=== PATIENT | female | born 1945 | race Caucasian/White ===

== ENCOUNTER → 2018-08-27 | Day surgery (SDC) | payer MEDICARE ==
[2018-08-24 11:35] LABS: BASOPHILS # (AUTO) 0.1 (0.0-0.1); EOSINOPHILS # (AUTO) 0.4 (0.0-0.4); EOSINOPHILS % 3.6 % (0.0-6.0); HEMATOCRIT 45.1 % (34.2-44.1); HEMOGLOBIN 14.4 g/dL (12.0-16.0); LYMPHOCYTES # (AUTO) 1.5 (1.0-3.2); LYMPHOCYTES % 13.2 % (18.0-39.1); MEAN CORPUSCULAR HEMOGLOBIN 30.1 pg (28-32); MEAN CORPUSCULAR HGB CONC 31.9 g/dL (31-35); MEAN CORPUSCULAR VOLUME 94.2 fL (81-99); MONOCYTES # (AUTO) 0.9 (0.2-0.8); MONOCYTES % 8.2 % (4.4-11.3); NEUTROPHILS # (AUTO) 8.4 (2.1-6.9); NEUTROPHILS % 73.8 % (38.7-80.0); PLATELET COUNT 243 x10e3/uL (140-360); RED BLOOD COUNT 4.79 x10e6/uL (3.6-5.1); RED CELL DISTRIBUTION WIDTH 12.8 % (11.7-14.4)
[2018-08-24 11:43] LABS: INR 0.89; PROTHROMBIN TIME 12.9 seconds (11.9-14.5)
[2018-08-24 11:44] LABS: PARTIAL THROMBOPLASTIN TIME 27.5 seconds (23.8-35.5)
[2018-08-24 11:54] LABS: ALBUMIN 4.1 g/dL (3.5-5.0); ALBUMIN/GLOBULIN RATIO 1.2 (0.8-2.0); CALCIUM 10.7 mg/dL (8.4-10.2); CREATININE, SERUM 1.12 mg/dL (0.57-1.11)
--- NOTE | 2018-08-24 11:59 | Diagnostic Imaging Report ---
EXAMINATION: PA and lateral views of the chest. COMPARISON: None CLINICAL HISTORY: Preoperative evaluation for cardiac catheterization DISCUSSION: Lines/tubes: None. Lungs: The lungs are well inflated and clear. There is no evidence of pneumonia or pulmonary edema. Pleura: There is no pleural effusion or pneumothorax. Heart and mediastinum: Prominent heart size. Aortic calcification. Bones and soft tissues: No acute bony abnormalities. IMPRESSION: Mild cardiomegaly without decompensation. Signed by: Dr. Michele Palma M.D. on 08/24/2018 11:56 AM
--- NOTE | 2018-08-24 16:11 | Pre Op History & Physical ---
The patient will be presenting for cardiac catheterization and possible intervention. HISTORY: A 73-year-old lady who has known multiple advanced health problems, including hypertension, atrial fibrillation, very severe vascular disease, very abnormal nuclear stress test, heavy smoker, COPD, lymphoma, status post chemotherapy. Patient in need for lung resection for slowly growing tumor. She was seen by her doctor, Dr. Gallardo at [facility] and anesthesia there. The patient was referred back to us to do a cardiac catheterization before her procedure. The patient is on Eliquis, which she stopped a few days back in preparation for this procedure. Her symptoms are easy fatigability, shortness of breath, chest pressure, chest tightness on minimal activity, chronic cough, productive at times, severe claudication in the right lower extremity. CURRENT MEDICATIONS 1. Eliquis 5 mg twice a day which is on hold. 2. Valsartan 80 mg a day. 3. Metoprolol tartrate 100 mg twice a day. 4. Pravastatin 40 mg a day. 5. Lasix 40 mg a day. 6. Tizanidine 2 mg 3 times a day. 7. Proair. 8. Tylenol Arthritis. 9. Zyrtec allergy. 10. Vitamin D. 11. Symbicort. ALLERGIES: TETANUS TOXOID. PAST MEDICAL HISTORY 1. Atrial fibrillation since October 2014. 2. Very abnormal arterial Doppler since 2013 with severe right iliac disease and bilateral lower extremity disease. 3. Hypertension. 4. Hypercholesterolemia. 5. COPD. 6. Heavy smoker. 7. Prior myocardial infarction. 8. Degenerative joint disease of the back and lumbar area. 9. Lung and liver nodules. 10. Right leg DVT. 11. Venous insufficiency. 12. Occluded right internal carotid artery. 13. Tonsillectomy. 14. Breast surgery. 15. Appendectomy. SOCIAL HISTORY: She is a . She quit smoking in September 2014. However, it was a very short period and she is back smoking. She is not an alcohol drinker. She is retired from [employer]. FAMILY HISTORY: Father at age 67 with CVA. Mother at the age of 74 with liver disease. Three siblings, one sister is diabetic and hypertensive. Two sons and no daughters. REVIEW OF SYSTEMS GENERAL: No fever. No chills. HEENT: Chronic headache. Chronic congestion. PULMONARY: Severe shortness of breath on minimal activity. CARDIAC: Exertional tightness and chest pressure with minimal activity. Smoker's cough. Debility. GI: No hematemesis. No melena. HEMATOLOGY: Easy bruising but no bleeding. EXTREMITIES: General back pain and knee pain. Severe claudication. Severe peripheral neuropathy. PHYSICAL EXAMINATION VITALS: Height of 5 feet 9 inches, weight 181 pounds, blood pressure 120/70, heart rate of 80, respiratory rate of 18. HEENT: Pupils are active. NECK: No elevation of jugular venous pulsation. No bruits. CHEST: Decreased air entry and poor air flow consistent with COPD. HEART: Irregularly irregular rate of atrial fibrillation. ABDOMEN: Soft. EXTREMITIES: Almost no pulses in the right lower extremity. Marked decrease pulse in the right femoral area. NEUROLOGIC: Weakness but no localized deficits. IMPRESSION AND PLAN 1. Angina equivalent symptoms. 2. History of prior myocardial infarction in a patient with very severe advanced vascular disease, including right iliac, bilateral lower extremity and occluded right internal carotid artery. The patient also does have very severe advanced pulmonary disease. The patient will be presenting for cardiac catheterization with possible intervention. Procedure, risks, benefits were discussed and explained. High risks are discussed in view of the patient's severe vascular disease and severe pulmonary disease and debility. She is aware. She understands that, and we are going to proceed with the procedure on Monday. Job#: [id number] RAYNE
[2018-08-27] VITALS (11 sets, daily range): BP systolic 154–189; BP diastolic 73–111
[~2018-08-27] VITALS: Ht 172.7 cm; Wt 79.4 kg
[~2018-08-27] MED LIST: ACETAMINOPHEN500 M1 PO; ASPIRIN EC81 MG PO; ATENOLOL100 MG PO; AZOR 5-20 MG T1 EACH PO; CALCIUM600 MG PO; CLONIDINE HCL0.1 MG PO; CLOPIDOGREL75 MG PO; DIOVAN HCT 3201 EAC1 PO; DIOVAN PO; ELIQUIS PO; FENTANYL CITRATE/PF 100MCG/2 ML INJ ONE; FUROSEMIDE40 MG PO; HEPARIN SOD/SOD CHLORIDE 2,000 ML ONE; HYDRALAZINE HCL 20 MG/ML VIAL ONE; HYDROCODONE/APAP 5MG-325MG TAB ONE; IOPAMIDOL 370 MG/ML 200 ML INFUS..BTL INJ ONE; LIDOCAINE HCL 2% LOCAL 20 ML VIAL ONE; METOPROLOL SUCC50 MG PO; MIDAZOLAM HCL 2 MG/2 ML VIAL ONE; MONTELUKAST SOD10 MG PO; PRAVASTATIN PO; SODIUM CHLORIDE 0.9% 1000ML 1,000 ML ONE; SYMBICORT 16010.2 GM INH; TIZANIDINE HCL2 MG PO; VITAMIN D PO; ZYRTEC10 M3 PO
--- OUTSIDE RECORDS SUMMARY | 2018-08-27 07:44 | XMS REPORT | Clinical Summary ---
Author Author [employer] Organization [employer] Address Unknown Phone Unavailable Care Team Providers Care Cna Caregiver Name Role Phone Keyon Paul MD PCP Allergies Active Allergy Reactions Severity Noted Date Comments Tetanus Immune Globulin Hives 06/19/2018 WITH HORSE SERUM Current Medications Prescription Sig. Disp. Refills Start End Date Status Date apixaban (ELIQUIS) 5 mg Take 5 mg by mouth 2 Active tablet (two) times a day. metoprolol succinate XL Take 100 mg by mouth Active (TOPROL-XL) 100 mg 24 hr daily. tablet pravastatin (PRAVACHOL) Take 40 mg by mouth Active 40 MG tablet daily. furosemide (LASIX) 40 mg Take 40 mg by mouth 2 Active tablet (two) times a day. montelukast (SINGULAIR) Take 10 mg by mouth Active 10 mg tablet nightly. budesonide-formoterol Inhale 2 puffs 2 (two) Active (SYMBICORT) 160-4.5 times a day. mcg/actuation inhaler cholecalciferol, vitamin Take 2,000 Units by mouth Active D3, (VITAMIN D3) 2,000 daily. unit capsule capsule acetaminophen (TYLENOL) Take 500 mg by mouth Active 500 MG tablet every 6 (six) hours as needed for mild pain. amlodipine-olmesartan Take 1 tablet by mouth Active (TONY) 5-20 mg per tablet daily. tiZANidine (ZANAFLEX) 2 Take 2 mg by mouth every Active MG tablet 8 (eight) hours as needed for muscle spasms. losartan (COZAAR) 100 MG Take 100 mg by mouth 08/07/20 Discontin tablet daily. 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 Office Visit Cardiothoracic Surgery Omega Gallardo MD Lung nodule (Primary Dx); Thyroid nodule 08/13/2018 Hospital Radiology Omega Gallardo MD Lung nodule Encounter 08/07/2018 Office Visit Cardiothoracic Surgery Omega Gallardo MD Lung nodule (Primary Dx) 08/07/2018 Orders Only Cardiothoracic Surgery ProviderWiliam MD 07/25/2018 Lab Lab Lalo Salazar Jr., MD 07/24/2018 Documentation Intensive Care Lalo Salazar Jr., MD 06/19/2018 Hospital Radiology Lalo Salazar Jr., MD Encounter 06/19/2018 Hospital Radiology Tang Wright MD Pneumothorax, post biopsy Encounter 06/19/2018 Hospital Radiology Lalo Salazar Jr., MD Lung mass (Primary Dx); Encounter Preoperative clearance; Mass of lower lobe of left lung; Pneumothorax, post biopsy 06/19/2018 Ancillary Radiology Lalo Salazar Jr., MD Lung mass Orders 06/15/2018 Lab Lab Lalo Salazar Jr., MD Lung mass (Primary Dx) 06/15/2018 Telephone Radiology Judy Orozco, DANNY 06/08/2018 Transcribe Radiology Lalo Salazar Jr., MD Lung mass (Primary Dx) Orders 05/30/2018 Prep for Intensive Care Lalo Salazar Jr., MD Mass of lower lobe of Surgery left lung (Primary Dx); Preoperative clearance 05/09/2018 Orders Only Intensive Care Lalo Salazar Jr., MD Mass of left lung (Primary Dx) 04/19/2018 Hospital Radiology Lalo Salazar Jr., MD Abnormal CT scan of lung Encounter 04/19/2018 Documentation Intensive Care Lalo Salazar Jr., MD 04/16/2018 Transcribe Access Paul Salazar MD Orders 04/16/2018 Transcribe Access Lalo Salazar Jr., MD Abnormal CT scan of lung Orders (Primary Dx) 01/25/2018 Hospital Radiology Lalo Salazar Jr., MD Lung nodule, solitary; Encounter 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 Lab Lab Dajuan Kendrick 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 Orders Only Pulmonology Lalo Salazar Jr., MD Lung nodule, solitary (Primary Dx); COPD mixed type after 08/26/2017 Social History Tobacco Use Types Packs/Day Years Used Date Former Smoker Cigarettes 0.25 Quit: 04/07/2018 Smokeless Tobacco: Never Used Comments: patient has quit smoking several times, last time prior was 2013 Alcohol Use Drinks/Week oz/Week Comments No Sex Assigned at Date Recorded Not on file Last Filed Vital Signs Vital Sign Reading Time Taken Blood Pressure 208/77 08/14/2018 2:45 PM CDT Pulse 69 08/14/2018 2:45 PM CDT Temperature 36.6 C (97.9 F) 08/14/2018 2:45 PM CDT Respiratory Rate 16 08/14/2018 2:45 PM CDT Oxygen Saturation 100% 08/14/2018 2:45 PM CDT Inhaled Oxygen - - Concentration Weight 80.7 kg (178 lb) 08/14/2018 2:45 PM CDT Height 170.2 cm (5' 7") 08/14/2018 2:45 PM CDT Body Mass Index 27.88 08/14/2018 2:45 PM CDT Plan of Treatment Health Maintenance Due Date Last Done Comments BREAST CANCER SCREENING 1993 COLON CANCER SCREENING 1993 SHINGRIX VACCINE (#1) 1993 PNEUMOCOCCAL 2008 POLYSACCHARIDE VACCINE AGE 65 AND OVER PNEUMOCOCCAL-13 2008 INFLUENZA VACCINE 05/23/2018 08/06/2017, 08/06/2016, 08/05/2015 ZOSTER VACCINE Completed 03/29/2014 Procedures Procedure Name Priority Date/Time Associated Diagnosis Comments THYROGLOBULIN ANTIBODY Routine 08/21/2018 Lymphosarcoma, mixed cell Results for this 4:42 PM CDT type (HCC) procedure are in the results section. PET CT SKULL BASE TO MID Routine 08/13/2018 Lung nodule Results for this THIGH 11:19 AM CDT procedure are in the results section. POC GLUCOSE Routine 08/13/2018 Results for this 9:58 AM CDT procedure are in the results section. XR CHEST 1 VW STAT 06/19/2018 Results for this 1:51 PM CDT procedure are in the results section. XR CHEST 1 VW Routine 06/19/2018 Pneumothorax, post biopsy Results for this 11:28 AM CDT procedure are in the results section. CYTOLOGY Routine 06/19/2018 Results for this (NON-GYNECOLOGICAL) 10:17 AM CDT procedure are in the REQUEST results section. CT NEEDLE BIOPSY NO Routine 06/19/2018 Lung mass Results for this CONTRAST 10:13 AM CDT procedure are in the results section. SURGICAL PATHOLOGY Routine 06/19/2018 Results for this REQUEST 10:13 AM CDT procedure are in the results section. SURGICAL PATHOLOGY Routine 06/19/2018 Results for this REQUEST 10:13 AM CDT procedure are in the results section. SURGICAL PATHOLOGY Routine 06/19/2018 Results for this REQUEST 10:13 AM CDT procedure are in the results section. ECG 12-LEAD STAT 06/19/2018 Results for this 8:49 AM CDT procedure are in the results section. HC COMPLETE BLD COUNT Routine 06/15/2018 Lung mass Results for this W/AUTO DIFF 11:38 AM CDT procedure are in the results section. PARTIAL THROMBOPLASTIN Routine 06/15/2018 Lung mass Results for this TIME (PTT) 11:38 AM CDT procedure are in the results section. PROTHROMBIN TIME WITH INR Routine 06/15/2018 Lung mass Results for this 11:38 AM CDT procedure are in the results section. CT CHEST WO CONTRAST Routine 04/19/[address] scan of lung Results for this 4:07 PM CDT procedure are in the results section. PULMONARY FUNCTION TEST Routine 02/14/2018 12:[address] CHEST WO CONTRAST Routine 01/25/2018 Lung nodule, solitary Results for this 11:51 AM CDT COPD mixed type procedure are in the results section. ZZESTIMATED GFR STAT 11/27/2017 Results for this 10:50 AM PET GROOMER procedure are in the results section. LDH STAT 11/27/2017 Reticulosarcoma Results for this 10:50 AM PET GROOMER procedure are in the results section. HC COMPLETE BLD COUNT STAT 11/27/2017 Reticulosarcoma Results for this W/AUTO DIFF 10:50 AM PET GROOMER procedure are in the results section. COMPREHENSIVE METABOLIC STAT 11/27/2017 Reticulosarcoma Results for this PANEL 10:50 AM PET GROOMER procedure are in the results section. after 08/26/2017 Results * Thyroglobulin antibody (08/21/2018 4:42 PM) Thyroglobulin Ab <0.9 0.0 - 4.0 IU/mL [facility] DEPARTMENT OF PATHOLOGY AND GENOMIC MEDICINE Specimen Serum Performing Organization Address City/State/Zipcode Phone Number [facility] DEPARTMENT OF [address] [place] [address] PATHOLOGY AND GENOMIC MEDICINE * PET/CT Skull Base To Mid Thigh (08/13/2018 11:19 AM) Narrative Performed At PROCEDURE:PET CT SKULL BASE TO MID THIGH RADIANT INDICATION:Evaluate lung nodule.Initial treatment strategy. TECHNIQUE:Blood glucose measured at the time of injection was 100 mg/dL. The patient was then injected with 12.2 mCi of 18F-FDG, IV.Approximately one hour later, PET images were acquired from the skull base to the mid thighs. Corresponding, low dose, non-contrast CT scanning was performed as part of the attenuation correction process.Automated dose exposure control was utilized. COMPARISON:CT chest dated 04/19/2018, showing a 1.6 cm left lung nodule. FINDINGS: Head and neck:No suspicious brain uptake.Normal uptake is seen in the visualized sinuses, orbits, nasopharynx, and oropharynx.Uptake by the larynx is normal.No suspicious neck lymph node uptake. Chest:Left-sided thyroid nodule demonstrates focal uptake, with an SUV of 3.9.No abnormal mediastinal, hilar, or axillary lymph node uptake.No suspicious pulmonary uptake.The perifissural left lower lobe pulmonary nodule seen on comparison CT is without abnormal uptake.Smaller pulmonary nodules noted on prior CT are too small to resolve. Abdomen:Normal uptake is seen in the stomach, spleen, pancreas, liver, and adrenal glands.No abnormal retroperitoneal or mesenteric lymph node uptake.Bowel uptake is physiologic. Pelvis:Physiologic bowel uptake.No suspicious pelvic sidewall or inguinal lymph node uptake. Review of the osseous structures demonstrates no suspicious uptake. IMPRESSION: 1.Absent uptake by the left lower lobe nodule seen on prior CT suggests either a benign nodule or very low-grade malignancy. 2.Incidental uptake within a left-sided thyroid nodule.This would be better evaluated with thyroid ultrasound, if clinically desired. [facility]-[id number] Procedure Note [facility], Radiology Results [facility] - 08/13/2018 11:44 AM CDT PROCEDURE: PET CT SKULL BASE TO MID THIGH INDICATION: Evaluate lung nodule. Initial treatment strategy. TECHNIQUE: Blood glucose measured at the time of injection was 100 mg/dL. The patient was then injected with 12.2 mCi of 18F-FDG, IV. Approximately one hour later, PET images were acquired from the skull base to the mid thighs. Corresponding, low dose, non-contrast CT scanning was performed as part of the attenuation correction process. Automated dose exposure control was utilized. COMPARISON: CT chest dated 04/19/2018, showing a 1.6 cm left lung nodule. FINDINGS: Head and neck: No suspicious brain uptake. Normal uptake is seen in the visualized sinuses, orbits, nasopharynx, and oropharynx. Uptake by the larynx is normal. No suspicious neck lymph node uptake. Chest: Left-sided thyroid nodule demonstrates focal uptake, with an SUV of 3.9. No abnormal mediastinal, hilar, or axillary lymph node uptake. No suspicious pulmonary uptake. The perifissural left lower lobe pulmonary nodule seen on comparison CT is without abnormal uptake. Smaller pulmonary nodules noted on prior CT are too small to resolve. Abdomen: Normal uptake is seen in the stomach, spleen, pancreas, liver, and adrenal glands. No abnormal retroperitoneal or mesenteric lymph node uptake. Bowel uptake is physiologic. Pelvis: Physiologic bowel uptake. No suspicious pelvic sidewall or inguinal lymph node uptake. Review of the osseous structures demonstrates no suspicious uptake. IMPRESSION: 1. Absent uptake by the left lower lobe nodule seen on prior CT suggests either a benign nodule or very low-grade malignancy. 2. Incidental uptake within a left-sided thyroid nodule. This would be better evaluated with thyroid ultrasound, if clinically desired. [facility]-[id number] Performing Organization Address City/[facility]/Zipcode Phone Number [facility] [address] [place] [phone] * POC glucose (08/13/2018 9:58 AM) POC glucose 100 (H) 65 - 99 mg/dL [facility] DEPARTMENT OF Comment: PATHOLOGY AND No Action Needed GENOMIC MEDICINE Meter ID: [id number] Certified Retinal Angiographer: Ezequiel Hou Performing Organization Address City/[facility]/Zipcode Phone Number [facility] DEPARTMENT OF [address] [place] [phone] PATHOLOGY AND GENOMIC MEDICINE * XR Chest 1 Vw (06/19/2018 1:51 PM) Only the most recent of 2 results within the time period is included. Narrative Performed At EXAMINATION:[facility]ST 1 [facility] CLINICAL HISTORY:S P Left Lung Biopsy COMPARISON:06/19/2018 IMPRESSION: An ill-defined opacity left perihilar region is known to represent an area of pulmonary hemorrhage surrounding a left lower lobe pulmonary nodule which underwent biopsy earlier the same day. No pneumothorax is present. Atelectasis is present in the left lung base. A small left pleural effusion is suspected. Heart size appears mildly prominent. [facility]-[id number] Procedure Note Interface, Radiology Results Incoming - 06/19/2018 1:56 PM CDT EXAMINATION: XR CHEST 1 VW CLINICAL HISTORY: S P Left Lung Biopsy COMPARISON: 06/19/2018 IMPRESSION: An ill-defined opacity left perihilar region is known to represent an area of pulmonary hemorrhage surrounding a left lower lobe pulmonary nodule which underwent biopsy earlier the same day. No pneumothorax is present. Atelectasis is present in the left lung base. A small left pleural effusion is suspected. Heart size appears mildly prominent. [facility]-[id number] Performing Organization Address City/[facility] Phone Number [facility] [address] [place] [address] * Cytology (non-gynecological) request (06/19/2018 10:17 AM) [facility] DEPARTMENT OF PATHOLOGY AND GENOMIC MEDICINE Cytology See link below for PDF Lab [facility] DEPARTMENT OF (non-gynecological) Report PATHOLOGY AND report GENOMIC MEDICINE Result status This is Final Report for [facility] DEPARTMENT OF [id number] PATHOLOGY AND GENOMIC MEDICINE Performing Organization Address [facility] Phone Number [facility] DEPARTMENT OF [address] [place] [address] PATHOLOGY AND GENOMIC MEDICINE * CT Needle Biopsy No Contrast (06/19/2018 10:13 AM) Narrative Performed At EXAMINATION:CT NEEDLE BIOPSY NO CONTRAST [facility] CLINICAL HISTORY:R91.8 Other nonspecific abnormal finding of lung field, LUNG MASS COMPARISON:To a previous CT scan of the chest from 04/19/2018 FINDINGS: Following discussion with the patient concerning risks and benefits of the procedure and following IV conscious sedation with Versed and fentanyl, biopsy of a left lower lobe nodule was performed using CT fluoroscopic guidance. [id number] patient to physician sedation time was 17 minutes. Multiple core samples were obtained and sent to pathology for further evaluation. An adequacy check was performed. Small amount of hemorrhage was noted following the procedure. The patient tolerated the procedure well. IMPRESSION: Biopsy of a left lower lobe nodule. [facility]-[id number] Procedure Note Interface, Radiology Results Incoming - 06/19/2018 2:05 PM CDT EXAMINATION: CT NEEDLE BIOPSY NO CONTRAST CLINICAL HISTORY: R91.8 Other nonspecific abnormal finding of lung field, LUNG MASS COMPARISON: To a previous CT scan of the chest from 04/19/2018 FINDINGS: Following discussion with the patient concerning risks and benefits of the procedure and following IV conscious sedation with Versed and fentanyl, biopsy of a left lower lobe nodule was performed using CT fluoroscopic guidance. [id number] patient to physician sedation time was 17 minutes. Multiple core samples were obtained and sent to pathology for further evaluation. An adequacy check was performed. Small amount of hemorrhage was noted following the procedure. The patient tolerated the procedure well. IMPRESSION: Biopsy of a left lower lobe nodule. [facility]-[id number] Performing Organization Address City/[facility] Phone Number [facility] [address] [place] [address] * Surgical pathology request (06/19/2018 10:13 AM) Only the most recent of 3 results within the time period is included. [facility] DEPARTMENT OF PATHOLOGY AND GENOMIC MEDICINE Surgical pathology report See link below for PDF Lab [facility] DEPARTMENT OF Report PATHOLOGY AND GENOMIC MEDICINE Result status This is Supplemental Report [facility] DEPARTMENT OF for [id number] PATHOLOGY AND GENOMIC MEDICINE Performing Organization Address [facility] Phone Number [facility] DEPARTMENT OF [address] [place] [id number] PATHOLOGY AND GENOMIC MEDICINE * ECG 12 lead (06/19/2018 8:49 AM) Ventricular rate 70 [facility] M[facility] Atrial rate 77 [facility] QRSD interval 90 [facility] QT interval 404 [facility] QTC interval 436 [facility] QRS axis 1 -23 [facility] T wave axis 78 [facility] EKG impression Atrial [facility] fibrillation-Anteroseptal infarct (cited on or before 28-OCT-2014)-Abnormal ECG-In automated comparison with ECG of 28-OCT-2014 16:37,-Atrial fibrillation has replaced Junctional rhythm-Vent. rate has decreased BY45 BPM-T wave inversion less evident in Lateral leads- Performing Organization Address [facility] Phone Number [facility] [employer] [address] [place] [address] * Partial thromboplastin time, activated (06/15/2018 11:38 AM) PTT 28.5 23.0 - 36.0 sec [facility] DEPARTMENT OF Comment: PATHOLOGY AND PTT therapeutic range for GENOMIC MEDICINE unfractionated heparin is 61.0-112.0 seconds which corresponds to Anti-Xa 0.3-0.7 U/ml. Specimen Blood Performing Organization Address City/[facility]/[place] [address] PATHOLOGY AND [employer] [facility] * Prothrombin time with INR (06/15/2018 11:38 AM) Prothrombin time 16.6 (H) 12.0 - 15.0 sec [facility] DEPARTMENT OF PATHOLOGY AND [employer] MEDICINE INR 1.3 [facility] DEPARTMENT OF Comment: PATHOLOGY AND The International Normalized [facility] Ratio (INR) is a therapeutic monitoring tool for patients who are stable on oral anticoagulant therapy. An INR of 2.0-3.0 is suggested for deep vein thrombosis/pulmonary embolism. Specimen Blood Performing Organization Address [facility] [place] [address] PATHOLOGY AND [employer] [facility] * CBC with platelet and differential (06/15/2018 11:38 AM) Only the most recent of 2 results within the time period is included. WBC 12.04 (H) 4.50 - 11.00 k/uL [facility] DEPARTMENT OF PATHOLOGY AND GENOMIC MEDICINE RBC 4.89 4.20 - 5.50 m/uL [facility] DEPARTMENT OF PATHOLOGY AND GENOMIC MEDICINE HGB 14.7 12.0 - 16.0 g/dL [facility] DEPARTMENT OF PATHOLOGY AND GENOMIC MEDICINE HCT 47.6 (H) 37.0 - 47.0 % [facility] DEPARTMENT OF PATHOLOGY AND GENOMIC MEDICINE MCV 97.3 82.0 - 100.0 fL [facility] DEPARTMENT OF PATHOLOGY AND GENOMIC MEDICINE MCH 30.1 27.0 - 34.0 pg [facility] DEPARTMENT OF PATHOLOGY AND GENOMIC MEDICINE MCHC 30.9 (L) 31.0 - 37.0 g/dL [facility] DEPARTMENT OF PATHOLOGY AND GENOMIC MEDICINE RDW - SD 47.2 37.0 - 55.0 fL [facility] DEPARTMENT OF PATHOLOGY AND GENOMIC MEDICINE MPV 10.2 8.8 - 13.2 fL [facility] DEPARTMENT OF PATHOLOGY AND GENOMIC MEDICINE Platelet count 198 150 - 400 k/uL [facility] DEPARTMENT OF PATHOLOGY AND GENOMIC MEDICINE Nucleated RBC 0.00 /100 WBC [facility] DEPARTMENT OF PATHOLOGY AND GENOMIC MEDICINE Neutrophils 70.1 (H) 39.0 - 69.0 % [facility] DEPARTMENT OF PATHOLOGY AND GENOMIC MEDICINE Lymphocytes 17.1 (L) 25.0 - 45.0 % [facility] DEPARTMENT OF PATHOLOGY AND GENOMIC MEDICINE Monocytes 9.2 0.0 - 10.0 % [facility] DEPARTMENT OF PATHOLOGY AND GENOMIC MEDICINE Eosinophils 2.2 0.0 - 5.0 % [facility] DEPARTMENT OF PATHOLOGY AND GENOMIC MEDICINE Basophils 0.7 0.0 - 1.0 % [facility] DEPARTMENT OF PATHOLOGY AND GENOMIC MEDICINE Immature granulocytes 0.7Comment: "Immature 0.0 - 1.0 % [facility] DEPARTMENT OF granulocytes" (promyelocytes, PATHOLOGY AND myelocytes, metamyelocytes) [facility] MEDICINE Specimen Blood Performing Organization Address City/State/Zipcode Phone Number [facility] DEPARTMENT OF [address] [place] [address] PATHOLOGY AND GENOMIC MEDICINE * CT Chest Wo Contrast (04/19/2018 4:07 PM) Only the most recent of 2 results within the time period is included. Narrative Performed At EXAMINATION: [facility] CT CHEST WO CONTRAST CLINICAL HISTORY: R91.8 Other nonspecific abnormal finding of lung field, R91.8 TECHNIQUE: Multiple axial images of the chest were obtained without intravenous contrast. The lack of intravenous contrast reduces the sensitivity of detecting solid organ disease and evaluating vasculature. Sagittal and coronal computerized reformatted images were also obtained. All CT scan performed using radiation dose reduction techniques. Technical factors are evaluated and adjusted to ensure appropriate moderation of exposure. Automated dose management technology is applied to adjust the radiation dose to minimize expose whileachieving a diagnostic quality image. COMPARISON: 01/25/2018 and 05/05/2017. FINDINGS: There is continue mild increase in size of a mixed solid and groundglass subpleural nodule within the superior aspect of the left lower lobe abutting the fissure from approximately 1 x 1.3 cm to approximately 1.2 x 1.6 cm. A new approximately 2.3 mm right upper lobe pulmonary nodule is seen, series 4 image #61. Bilateral upper lobes pulmonary nodules and biapical nodular thickening are stable since a study of 2017.. There is no evidence of consolidation or pleural effusion. No pneumothorax is seen. The heart is normal in size. No pericardial effusion is seen. Scattered atherosclerotic coronary artery calcifications are noted. The thoracic aorta is not well evaluated without the use of intravenous contrast. Scattered atherosclerotic disease of the thoracic aorta is noted.However, there is no evidence of aortic aneurysm. The pulmonary vasculature is unremarkable. No gross evidence of mediastinum, hilar or axillary lymphadenopathy. The visualized portions of the upper abdominal are unremarkable. IMPRESSION: Mild increase in size of the left lower lobe subpleural mixed density nodules in the interim. Again, malignancy cannot be entirely excluded. Tissue sampling would be of use for definitive diagnosis if this has not already been done. Otherwise, continue short-term imaging follow-up. New right upper lobe micronodule. Short-term imaging follow-up is suggested. Stable scattered bilateral upper lobe pulmonary nodules and biapical nodular thickening. [id number] Procedure Note Hm Interface, Radiology Results Incoming - 04/19/2018 4:34 PM CDT EXAMINATION: CT CHEST WO CONTRAST CLINICAL HISTORY: R91.8 Other nonspecific abnormal finding of lung field, R91.8 TECHNIQUE: Multiple axial images of the chest were obtained without intravenous contrast. The lack of intravenous contrast reduces the sensitivity of detecting solid organ disease and evaluating vasculature. Sagittal and coronal computerized reformatted images were also obtained. All CT scan performed using radiation dose reduction techniques. Technical factors are evaluated and adjusted to ensure appropriate moderation of exposure. Automated dose management technology is applied to adjust the radiation dose to minimize expose while achieving a diagnostic quality image. COMPARISON: 01/25/2018 and 05/05/2017. FINDINGS: There is continue mild increase in size of a mixed solid and groundglass subpleural nodule within the superior aspect of the left lower lobe abutting the fissure from approximately 1 x 1.3 cm to approximately 1.2 x 1.6 cm. A new approximately 2.3 mm right upper lobe pulmonary nodule is seen, series 4 image #61. Bilateral upper lobes pulmonary nodules and biapical nodular thickening are stable since a study of 2017.. There is no evidence of consolidation or pleural effusion. No pneumothorax is seen. The heart is normal in size. No pericardial effusion is seen. Scattered atherosclerotic coronary artery calcifications are noted. The thoracic aorta is not well evaluated without the use of intravenous contrast. Scattered atherosclerotic disease of the thoracic aorta is noted. However, there is no evidence of aortic aneurysm. The pulmonary vasculature is unremarkable. No gross evidence of mediastinum, hilar or axillary lymphadenopathy. The visualized portions of the upper abdominal are unremarkable. IMPRESSION: Mild increase in size of the left lower lobe subpleural mixed density nodules in the interim. Again, malignancy cannot be entirely excluded. Tissue sampling would be of use for definitive diagnosis if this has not already been done. Otherwise, continue short-term imaging follow-up. New right upper lobe micronodule. Short-term imaging follow-up is suggested. Stable scattered bilateral upper lobe pulmonary nodules and biapical nodular thickening. [id number] Performing Organization Address [facility] [place] [address] * Pulmonary function tests, complete (02/14/2018) Narrative Performed At * Estimated GFR (11/27/2017 10:50 AM) GFR Non Af Amer 48 (A) mL/min/1.73 m2 [facility] DEPARTMENT OF PATHOLOGY AND GENOMIC MEDICINE GFR Af Amer 59 (A) mL/min/1.73 m2 [facility] DEPARTMENT OF Comment: PATHOLOGY AND Chronic kidney disease: <60 [facility] mL/min/1.73m2 Kidney failure: <15 mL/min/1.73m2 The estimated GFR is calculated from the IDMS-traceable Modification of Diet in Renal Disease Equation. The accuracy of the calculation is poor when the creatinine is normal. Calculated values >90 mL/min/1.73m2 are not reported. This equation has not been validated in children (<18 years), women, the elderly (>70 years), or ethnic groups other than Caucasians and Americans. Specimen Plasma specimen Performing Organization Address [facility] [place] [address] PATHOLOGY AND GENOMIC MEDICINE * LDH (11/27/2017 10:50 AM) LDH 203 87 - 225 U/L [facility] DEPARTMENT OF PATHOLOGY AND GENOMIC MEDICINE Specimen Plasma specimen Performing Organization Address City/[facility] Facilitycode Phone Number [place] [phone] PATHOLOGY AND GENOMIC MEDICINE * Comprehensive metabolic panel (11/27/2017 10:50 AM) Sodium 145 135 - 148 mEq/L [facility] DEPARTMENT OF PATHOLOGY AND GENOMIC MEDICINE Potassium 4.1 3.5 - 5.0 mEq/L [facility] DEPARTMENT OF PATHOLOGY AND GENOMIC MEDICINE Chloride 101 98 - 112 mEq/L [facility] DEPARTMENT OF PATHOLOGY AND GENOMIC MEDICINE CO2 29 24 - 31 mEq/L [facility] DEPARTMENT OF PATHOLOGY AND GENOMIC MEDICINE Anion gap 15 7 - 15 mEq/L [facility] DEPARTMENT OF Comment: PATHOLOGY AND Starting from January GENOMIC MEDICINE , anion gap calculation no longer incorporates potassium. Please note the change. BUN 25 (H) 8 - 23 mg/dL [facility] DEPARTMENT OF PATHOLOGY AND GENOMIC MEDICINE Creatinine 1.1 (H) 0.5 - 0.9 mg/dL [facility] DEPARTMENT OF PATHOLOGY AND GENOMIC MEDICINE Glucose 98 65 - 99 mg/dL [facility] DEPARTMENT OF PATHOLOGY AND GENOMIC MEDICINE Calcium 10.5 (H) 8.8 - 10.2 mg/dL [facility] DEPARTMENT OF PATHOLOGY AND GENOMIC MEDICINE Protein 7.0 6.3 - 8.3 g/dL [facility] DEPARTMENT OF Comment: PATHOLOGY AND GENOMIC MEDICINE 4.6-7.0 g/dL 1 week 4.4-7.6 g/dL 7 months-1year 5.1-7.3 g/dL 1-2 years5.6-7 .5 g/dL >3 years6.0-8 .0 g/dL 18-150 6.3-8.3 g/dL Albumin 4.0 3.5 - 5.0 g/dL [facility] DEPARTMENT OF PATHOLOGY AND GENOMIC MEDICINE A/G ratio 1.3 0.7 - 3.8 [facility] DEPARTMENT OF PATHOLOGY AND GENOMIC MEDICINE Alkaline phosphatase 52 35 - 104 U/L [facility] DEPARTMENT OF PATHOLOGY AND GENOMIC MEDICINE AST 22 10 - 35 U/L [facility] DEPARTMENT OF PATHOLOGY AND GENOMIC MEDICINE ALT 8 5 - 50 U/L [facility] DEPARTMENT OF PATHOLOGY AND GENOMIC MEDICINE Total bilirubin 0.7 0.0 - 1.2 mg/dL [facility] DEPARTMENT OF PATHOLOGY AND GENOMIC MEDICINE Specimen Plasma specimen Performing Organization Address City/State/Zipcode Phone Number [facility] DEPARTMENT OF [address] [place] [address] PATHOLOGY AND GENOMIC MEDICINE after 08/26/2017 Insurance Payer Benefit Subscriber ID Type Phone Address Plan / Group HU[employer]NA MEDICARE HUMANA xxxxxxxxx PPO MEDICARE PPO/PFFS/E [facility] YOHANA CALDERA Self 1945 Home: [address] [place] [address]
--- OUTSIDE RECORDS SUMMARY | 2018-08-27 07:44 | XMS REPORT ---
Author Author [facility] Address Unknown Phone Unavailable Care Team Providers Care Library Helper Name Role Phone MICHELLE STERN Unavailable Unavailable Problems This patient has no known problems. Allergies, Adverse Reactions, Alerts This patient has no known allergies or adverse reactions. Medications This patient has no known medications. Results Test Description Test Time Test Comments Text Results Atomic Results Result Comments CHEST 2 VIEWS 2018-08-24 11:55:00 [place] [address] Patient Name: YOHANA CALDERA MR #: [id number] : 1945 Age/Sex: 73/F Req #: [id number] Adm Physician: Ordered by: MICHELLE STERN MD Report #: [id number] Location: PHYSICAL THERAPY TECHNICIAN Room/Bed: Procedure: [id number] DX/CHEST 2 VIEWS Exam Date: 08/24/18 Exam Time: 1130 REPORT STATUS: Signed EXAMINATION: PA and lateral views of the chest. C OMPARISON: None CLINICAL HISTORY: Preoperative evaluation for cardiac catheterization DISCUSSION: Lines/tubes: None. Lungs: The lungs are well inflated and clear. There is no evidence of pneumonia or pulmonary edema. Pleura: There is no pleural effusion or pneumothorax. Heart and mediastinum: Prominent heart size. Aortic calcification. Bones and soft tissues: No acute bony abnormalities. IMPRESSION: Mild cardiomegaly without decompensation. Signed by: Dr. Issac Aguilar M.D. on 08/24/2018 11:56 AM Dictated By: ISSAC GAUILAR MD [id number] Transcribed By: JADA on 08/24/18 [id number] COPY TO: MICHELLE STERN MD
--- NOTE | 2018-08-27 15:30 | Operative Report ---
DATE OF PROCEDURE: August 27, 2018 TITLE OF PROCEDURES 1. Left cardiac catheterization. 2. Abdominal angiogram. INDICATIONS: Patient in need for lung surgery. Abnormal stress test. Shortness of breath on minimal activity. Advanced COPD and severe claudication of the lower extremity with abnormal Doppler showing abnormal Doppler waveform in the common femoral arteries. TECHNICAL DETAILS: After the usual sterile preparation and draping procedure, intravenous Versed and fentanyl given for sedation and local Xylocaine for anesthesia, 10 mg of hydralazine given for blood pressure, access was established in the left common femoral artery. Joon left 4 and 3DRC catheters to engage coronary. Pigtail for hemodynamic measurement and left ventriculogram. It was obvious in the mid abdominal aorta there is presence of a lesion. In view of abnormal Doppler results, we took a tennis racket, and we did an abdominal angiogram injection. At the end of the procedure, sheath was removed. Hemostasis was achieved manually. No complication. No blood loss. RESULTS A. Coronary angiogram. 1. Left main: Free of disease. 2. LAD: Several plaques at 30%. 3. Ramus: Minimal plaquing. 4. Circumflex coronary artery: Codominant circulation. 5. Right coronary artery giving high acute marginal with plaquing at 30% to 40%. B. Hemodynamic measurements: Aorta pressure 200/90. LV pressure 200/18. C. Left ventriculogram in the right anterior oblique view showed hypercontractile ventricle, ejection fraction of 70%. ABDOMINAL ANGIOGRAM: Abdominal angiogram was done, which showed the presence of more than 99% lesion of the distal abdominal aorta at the level of the right renal artery. There is ulcerated plaque. There is 20 mm mean gradient and approximately 35 mm [id number] gradient. 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 The left renal artery seems to be patent. IMPRESSION 1. Mild coronary artery disease. 2. Left ventricular ejection fraction of 70%. 3. Atrial fibrillation, which is chronic. 4. 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 COMPLICATIONS: None. BLOOD LOSS: None. Job#: [id number]
== END | disposition home or self-care (01) ==
LOC: CATH LAB 07:42
PROVIDERS: ATTEND Internal Medicine Cardiovascular Disease
DX: I25.118 Atherosclerotic heart disease of native coronary artery with other forms of angina pectoris (principal); R94.39 Abnormal result of other cardiovascular function study; I48.2 Chronic atrial fibrillation; I25.2 Old myocardial infarction; J44.9 Chronic obstructive pulmonary disease, unspecified; I70.213 Atherosclerosis of native arteries of extremities with intermittent claudication, bilateral legs; Q27.8 Other specified congenital malformations of peripheral vascular system; I35.9 Nonrheumatic aortic valve disorder, unspecified; I10 Essential (primary) hypertension; C85.90 Non-Hodgkin lymphoma, unspecified, unspecified site; Z88.7 Allergy status to serum and vaccine; E78.00 Pure hypercholesterolemia, unspecified; M47.816 Spondylosis without myelopathy or radiculopathy, lumbar region; R91.1 Solitary pulmonary nodule; K76.89 Other specified diseases of liver; I87.2 Venous insufficiency (chronic) (peripheral); I65.21 Occlusion and stenosis of right carotid artery; Z01.812 Encounter for preprocedural laboratory examination; F17.200 Nicotine dependence, unspecified, uncomplicated; Z01.818 Encounter for other preprocedural examination; Z79.02 Long term (current) use of antithrombotics/antiplatelets; Z86.718 Personal history of other venous thrombosis and embolism
CPT/HCPCS: 36415; 71046; 75625; 80053; 85025; 85610; 85730; 93458; C1766; C1769; C1887; J0360; J2001; J2250; J7030; Q9967

== ENCOUNTER 2019-01-10 18:03 | Emergency (ER) | payer MEDICARE ==
[~2019-01-10 18:03] MED LIST changes: -FENTANYL CITRATE/PF 100MCG/2 ML INJ ONE; -HEPARIN SOD/SOD CHLORIDE 2,000 ML ONE; -HYDRALAZINE HCL 20 MG/ML VIAL ONE; -HYDROCODONE/APAP 5MG-325MG TAB ONE; -IOPAMIDOL 370 MG/ML 200 ML INFUS..BTL INJ ONE; -LIDOCAINE HCL 2% LOCAL 20 ML VIAL ONE; -MIDAZOLAM HCL 2 MG/2 ML VIAL ONE; -SODIUM CHLORIDE 0.9% 1000ML 1,000 ML ONE
--- OUTSIDE RECORDS SUMMARY | 2019-01-10 18:07 | XMS REPORT | Clinical Summary ---
Author Author [facility] Organization [facility] Address Unknown Phone Unavailable Care Team Providers Care Adjuster Arbitrator Name Role Phone Keyon Paul MD PCP Allergies Comments Active Allergy Reactions Severity Noted Date WITH HORSE SERUM Tetanus Immune Globulin Hives 06/19/2018 Medications End Date Status Medication Sig Dispensed Refills Start Date Active apixaban (ELIQUIS) 5 mg Take 5 mg by 0 tablet mouth 2 (two) times a day. Active metoprolol succinate XL Take 100 mg 0 (TOPROL-XL) 100 mg 24 hr by mouth tablet daily. Active pravastatin (PRAVACHOL) Take 40 mg by 0 40 MG tablet mouth daily. Active furosemide (LASIX) 40 mg Take 40 mg by 0 tablet mouth 2 (two) times a day. Active cholecalciferol, vitamin Take 2,000 0 D3, (VITAMIN D3) 2,000 Units by unit capsule capsule mouth daily. Active acetaminophen (TYLENOL) Take 500 mg 0 500 MG tablet by mouth every 6 (six) hours as needed for mild pain. Active hydrALAZINE (APRESOLINE) Take 50 mg by 0 50 MG tablet mouth 3 (three) times a day. Active cetirizine (ZyrTEC) 10 MG Take 10 mg by 0 tablet mouth daily. Active lhvxnixcald-amvjrwozd-mjl Inhale. 0 anter (TRELEGY ELLIPTA) 100-62.5-25 mcg blister with device 08/07/2018 Discontinued losartan (COZAAR) 100 MG Take 100 mg 0 tablet by mouth daily. 11/14/2018 Discontinued montelukast (SINGULAIR) Take 10 mg by 0 10 mg tablet mouth nightly. 11/14/2018 Discontinued budesonide-formoterol Inhale 2 0 (SYMBICORT) 160-4.5 puffs 2 (two) mcg/actuation inhaler times a day. 11/27/2018 Discontinued amlodipine-olmesartan Take 1 tablet 0 (TONY) 5-20 mg per tablet by mouth daily. 11/14/2018 Discontinued tiZANidine (ZANAFLEX) 2 Take 2 mg by 0 MG tablet mouth every 8 (eight) hours as needed for muscle spasms. Active Problems Problem Noted Date Lung nodule 11/27/2018 Encounters Care Team Description Date Type Specialty Yanique Nino PA-C Primary adenocarcinoma of lower lobe of left lung (HCC) (Primary Dx) 01/01/2019 Orders Only Radiation Oncology José Manuel Hale MD 12/24/2018 Hospital Radiation Oncology Encounter Omega Gallardo MD 12/13/2018 Documentation General Surgery José Manuel Hale MD 12/03/2018 Hospital Radiation Oncology - Encounter 12/04/2018 Omega Gallardo MD Lung nodule (Primary Dx) 11/27/2018 Office Visit Cardiothoracic Surgery Dajuan Kendrick MD Non-Hodgkin's lymphoma, unspecified body region, unspecified non-Hodgkin lymphoma type (HCC) 11/14/2018 Hospital Radiology Encounter Dajuan Kendrick MD Non-Hodgkin's lymphoma, unspecified body region, unspecified non-Hodgkin lymphoma type (HCC) (Primary Dx) 11/08/2018 Transcribe Access Orders Dajuan Kendrick MD Lymphosarcoma, mixed cell type (HCC) (Primary Dx) 08/21/2018 Lab Lab Omega Gallardo MD Lung nodule (Primary Dx); Thyroid nodule 08/14/2018 Office Visit Cardiothoracic Surgery Omega Gallardo MD Lung nodule 08/13/2018 Hospital Radiology Encounter Omega Gallardo MD Lung nodule (Primary Dx) 08/07/2018 Office Visit Cardiothoracic Surgery Wiliam Gilmore MD 08/07/2018 Orders Only Cardiothoracic Surgery Lalo Salazar Jr., MD 07/25/2018 Lab Lab Lalo Salazar Jr., MD 07/24/2018 Documentation Intensive Care Lalo Salazar Jr., MD 06/19/2018 Hospital Radiology Encounter Tang Wright MD Pneumothorax, post biopsy 06/19/2018 Hospital Radiology Encounter Lalo Salazar Jr., MD Lung mass (Primary Dx); Preoperative clearance; Mass of lower lobe of left lung; Pneumothorax, post biopsy 06/19/2018 Hospital Radiology Encounter Lalo Salazar Jr., MD Lung mass (Primary Dx) 06/15/2018 Lab Lab Judy Orozco RN 06/15/2018 Telephone Radiology Lalo Salazar Jr., MD Lung mass (Primary Dx) 06/08/2018 Transcribe Radiology Orders Lalo Salazar Jr., MD Mass of lower lobe of left lung (Primary Dx); Preoperative clearance 05/30/2018 Prep for Intensive Care Surgery Lalo Salazar Jr., MD Mass of left lung (Primary Dx) 05/09/2018 Orders Only Intensive Care Lalo Salazar Jr., MD Abnormal CT scan of lung 04/19/2018 Hospital Radiology Encounter Lalo Salazar Jr., MD 04/19/2018 Documentation Intensive Care Paul Salazar MD 04/16/2018 Transcribe Access Orders Lalo Salazar Jr., MD Abnormal CT scan of lung (Primary Dx) 04/16/2018 Transcribe Access Orders Lalo Salazar Jr., MD Lung nodule, solitary; COPD mixed type 01/25/2018 Hospital Radiology Encounter after 01/09/2018 Social History Date Tobacco Use Types Packs/Day Years Used Quit: 04/07/2018 Former Smoker Cigarettes 0.25 Smokeless Tobacco: Never Used Comments: patient has quit smoking several times, last time prior was 2013 Alcohol Use Drinks/Week oz/Week Comments No Sex Assigned at Date Recorded Not on file Industry Job Start Date Occupation Not on file Not on file Not on file Travel End Travel History Travel Start No recent travel history available. Last Filed Vital Signs Time Taken Vital Sign Reading 11/27/2018 12:57 PM DENTAL SERVICE CHIEF Blood Pressure 180/69 11/27/2018 12:57 PM DENTAL SERVICE CHIEF Pulse 80 11/27/2018 12:57 PM DENTAL SERVICE CHIEF Temperature 36.8 C (98.2 F) 11/27/2018 12:57 PM DENTAL SERVICE CHIEF Respiratory Rate 17 11/27/2018 12:57 PM DENTAL SERVICE CHIEF Oxygen Saturation 98% - Inhaled Oxygen - Concentration 11/27/2018 12:57 PM DENTAL SERVICE CHIEF Weight 83.5 kg (184 lb 2 oz) 11/27/2018 12:57 PM DENTAL SERVICE CHIEF Height 170.2 cm (5' 7") 11/27/2018 12:57 PM DENTAL SERVICE CHIEF Body Mass Index 28.84 Plan of Treatment Health Maintenance Due Date Last Done Comments BREAST CANCER SCREENING 1993 COLON CANCER SCREENING 1993 SHINGLES VACCINES (#1) 1993 65+ PNEUMOCOCCAL VACCINE 2008 (1 of 2 - PCV13) PNEUMOCOCCAL 2008 POLYSACCHARIDE VACCINE AGE 65 AND OVER INFLUENZA VACCINE 05/23/2018 08/06/2017, 08/06/2016, 08/05/2015 Procedures Comments Procedure Name Priority Date/Time Associated Diagnosis CT CHEST W CONTRAST STAT 11/14/2018 Non-Hodgkin's lymphoma, 2:28 PM DENTAL SERVICE CHIEF unspecified body region, unspecified non-Hodgkin lymphoma type (HCC) POC CREATININE Routine 11/14/2018 1:51 PM DENTAL SERVICE CHIEF ESTIMATED GFR Routine 11/14/2018 1:51 PM DENTAL SERVICE CHIEF THYROGLOBULIN ANTIBODY Routine 08/21/2018 Lymphosarcoma, mixed cell 4:42 PM CDT type (HCC) PET CT SKULL BASE TO MID Routine 08/13/2018 Lung nodule THIGH 11:19 AM CDT POC GLUCOSE Routine 08/13/2018 9:58 AM CDT XR CHEST 1 VW STAT 06/19/2018 1:51 PM CDT XR CHEST 1 VW Routine 06/19/2018 Pneumothorax, post biopsy 11:28 AM CDT CYTOLOGY Routine 06/19/2018 (NON-GYNECOLOGICAL) 10:[address] NEEDLE BIOPSY NO Routine 06/19/2018 Lung mass CONTRAST 10:13 AM CDT SURGICAL PATHOLOGY Routine 06/19/2018 REQUEST 10:13 AM CDT SURGICAL PATHOLOGY Routine 06/19/2018 REQUEST 10:13 AM CDT SURGICAL PATHOLOGY Routine 06/19/2018 REQUEST 10:13 AM CDT ECG 12-LEAD STAT 06/19/2018 8:49 AM CDT HC COMPLETE BLD COUNT Routine 06/15/2018 Lung mass W/AUTO DIFF 11:38 AM CDT PARTIAL THROMBOPLASTIN Routine 06/15/2018 Lung mass TIME (PTT) 11:38 AM CDT PROTHROMBIN TIME WITH INR Routine 06/15/2018 Lung mass 11:[address] CHEST WO CONTRAST Routine 04/19/[address] scan of lung 4:07 PM CDT PULMONARY FUNCTION TEST Routine 02/14/2018 CT CHEST WO CONTRAST Routine 01/25/2018 Lung nodule, solitary 11:51 AM CDT COPD mixed type after 01/09/2018 Results * CT Chest W Contrast (11/14/2018 2:28 PM DENTAL SERVICE CHIEF) Narrative Performed At EXAMINATION: [facility] CT CHEST W CONTRAST CLINICAL HISTORY: C85.90 Non-Hodgkin lymphomaunspecifiedunspecified site, C85.80 TECHNIQUE: Multiple axial images of the chest were obtained following intravenous administration of iodinated contrast. Sagittal and coronal computerized reformatted images were also obtained.All CT images were acquired using low-dose technique with automated exposure control. COMPARISON: None. FINDINGS: 1.Left lower lobe subpleural predominantly groundglass opacity best visualized on image 47 of series 3 previously measured approximately 17 mm on April 11, 2018 with no significant interval change now measuring approximately 18 mm. Relative to 2015 size has minimally increased from approximately [address] evaluation of August 13, 2018 demonstrates no associated hypermetabolic activity. The lesion has been previously biopsied on June 19, 2018. 2.Stable left upper lobe pulmonary nodule measuring 7 mm. Nonspecific small 2 to 3 mm predominantly upper lobe centrilobular nodules unchanged significantly when compared to prior. In addition, there are nonspecific groundglass opacities in lungs bilaterally which may relate to air trapping. Mild emphysematous changes.. 3.Biapical nodularity and scarring is unchanged from May 05, 2017. 4.The heart size is normal. Thoracic aorta is of normal caliber. There are moderate degree atherosclerotic changes without evidence for aneurysm or dissection. No mediastinal lymphadenopathy. 5.No abnormally enlarged axillary or supraclavicular lymphadenopathy. A pleural or pericardial effusion is not identified. No pneumothorax. 6.Osseous structures are intact. Incidental note is made of mild pectus excavatum involving the sternum Limited images to the upper abdomen demonstrates cirrhotic morphology involving the liver. Small hiatal hernia. Stable thickened appearance to the left adrenal gland likely relates to hyperplasia. Moderate degree of cortical scarring involving the kidneys bilaterally with a nonobstructing 6 mm right renal stone. IMPRESSION: 1.1.8 cm left lower lobe subpleural opacity demonstrating slow interval growth when compared to 2015 however with little interval change from April 19, 2018. The lesion has been previously biopsied and does not demonstrate hypermetabolic activity on PET evaluation. 2.Stable left upper lobe pulmonary nodule measuring 7 mm. A right upper lobe nodule is unchanged measuring 4 to 5 mm. 3.Stable biapical pleural thickening and nodular scarring unchanged relative to prior. 4.Mild emphysematous changes in lungs bilaterally with nonspecific groundglass opacities stable relative to prior. 5.No lymphadenopathy. [facility]-[id number] Procedure Note [facility], Radiology Results Incoming - 11/14/2018 2:50 PM DENTAL SERVICE CHIEF EXAMINATION: CT CHEST W CONTRAST CLINICAL HISTORY: C85.90 Non-Hodgkin lymphoma unspecified unspecified site, C85.80 TECHNIQUE: Multiple axial images of the chest were obtained following intravenous administration of iodinated contrast. Sagittal and coronal computerized reformatted images were also obtained. All CT images were acquired using low- dose technique with automated exposure control. COMPARISON: None. FINDINGS: 1. Left lower lobe subpleural predominantly groundglass opacity best visualized on image 47 of series 3 previously measured approximately 17 mm on April 11, 2018 with no significant interval change now measuring approximately 18 mm. Relative to 2015 size has minimally increased from approximately [address] evaluation of August 13, 2018 demonstrates no associated hypermetabolic activity. The lesion has been previously biopsied on June 19, 2018. 2. Stable left upper lobe pulmonary nodule measuring 7 mm. Nonspecific small 2 to 3 mm predominantly upper lobe centrilobular nodules unchanged significantly when compared to prior. In addition, there are nonspecific groundglass opacities in lungs bilaterally which may relate to air trapping. Mild emphysematous changes.. 3. Biapical nodularity and scarring is unchanged from May 05, 2017. 4. The heart size is normal. Thoracic aorta is of normal caliber. There are moderate degree atherosclerotic changes without evidence for aneurysm or dissection. No mediastinal lymphadenopathy. 5. No abnormally enlarged axillary or supraclavicular lymphadenopathy. A pleural or pericardial effusion is not identified. No pneumothorax. 6. Osseous structures are intact. Incidental note is made of mild pectus excavatum involving the sternum Limited images to the upper abdomen demonstrates cirrhotic morphology involving the liver. Small hiatal hernia. Stable thickened appearance to the left adrenal gland likely relates to hyperplasia. Moderate degree of cortical scarring involving the kidneys bilaterally with a nonobstructing 6 mm right renal stone. IMPRESSION: 1. 1.8 cm left lower lobe subpleural opacity demonstrating slow interval growth when compared to 2015 however with little interval change from April 19, 2018. The lesion has been previously biopsied and does not demonstrate hypermetabolic activity on PET evaluation. 2. Stable left upper lobe pulmonary nodule measuring 7 mm. A right upper lobe nodule is unchanged measuring 4 to 5 mm. 3. Stable biapical pleural thickening and nodular scarring unchanged relative to prior. 4. Mild emphysematous changes in lungs bilaterally with nonspecific groundglass opacities stable relative to prior. 5. No lymphadenopathy. [facility]-[id number] Performing Organization Address [facility] Cliniccode [place] [address] * Estimated GFR (11/14/2018 1:51 PM DENTAL SERVICE CHIEF) Estimated GFR 49 (A) mL/min/1.73 m2 DILAN GARV[facility] Comment: HOSPITAL CatergoryUnitsInte rpretation G1 >=90 Normal or high G2 60-89Mildly decreased [id number] Mildly to moderately decreased [id number] Moderately to severely decreased G4 15-29Severely decreased G5 <15Kidney failure The eGFR was calculated using the Chronic Kidney Disease Epidemiology Collaboration (CKD-EPI) equation. Interpretation is based on recommendations of the National Kidney Foundation-Kidney Disease Outcomes Quality Initiative (NKF-KDOQI) published in 2014. Specimen Blood Performing Organization Address [facility] Phone Number [facility] DEPARTMENT OF [address] [place] [phone] PATHOLOGY AND GENOMIC MEDICINE [facility]IL[facility] GARVIN [address] [place] [address] HOSPITAL * POC creatinine (11/14/2018 1:51 PM DENTAL SERVICE CHIEF) POC creatinine 1.1 (H) 0.5 - 0.9 mg/dl [facility] Comment: HOSPITAL Meter ID: [id number] Associate Dean: Judd Churchill Specimen Blood Performing Organization Address City/State/Zipcode Phone Number [facility] DEPARTMENT OF [address] [place] [address] PATHOLOGY AND GENOMIC MEDICINE [facility] [address] [place] [address] * Thyroglobulin antibody (08/21/2018 4:42 PM CDT) Thyroglobulin Ab <0.9 0.0 - 4.0 IU/mL [facility] DEPARTMENT OF PATHOLOGY AND GENOMIC MEDICINE Specimen Serum Performing Organization Address [facility] Phone Number [facility] DEPARTMENT OF [address] [place] [address] PATHOLOGY AND GENOMIC MEDICINE * PET/CT Skull Base To Mid Thigh (08/13/2018 11:19 AM CDT) Narrative Performed At PROCEDURE:PET CT SKULL BASE [...] evaluated with thyroid ultrasound, if clinically desired. [facility]-[id number] Procedure Note [facility], Radiology Results Incoming - 08/13/2018 11:44 AM CDT PROCEDURE: PET [...] evaluated with thyroid ultrasound, if clinically desired. [facility]-[id number] Performing Organization Address City/State/Zipcode Phone Number [facility] [address] [place] [address] * POC glucose (08/13/2018 9:58 AM CDT) POC glucose 100 (H) 65 - 99 mg/dL [facility] DEPARTMENT OF Comment: PATHOLOGY AND No Action Needed GENOMIC MEDICINE Meter ID: [id number] Associate Dean: Ezequiel Hou Performing Organization Address City/State/Zipcode Phone Number [facility] DEPARTMENT OF [address] [place] [address] PATHOLOGY AND GENOMIC MEDICINE * XR Chest 1 Vw (06/19/2018 1:51 PM CDT) Only the most recent of 2 results within the time period is included. Narrative Performed At EXAMINATION:XR CHEST 1 VW [facility] CLINICAL HISTORY:S P Left Lung Biopsy COMPARISON:06/19/2018 IMPRESSION: An ill-defined opacity left perihilar region is known to represent an area of pulmonary hemorrhage surrounding a left lower lobe pulmonary nodule which underwent biopsy earlier the same day. No pneumothorax is present. Atelectasis is present in the left lung base. A small left pleural effusion is suspected. Heart size appears mildly prominent. [facility]-[id number] Procedure Note Interface, Radiology Results Incoming - [...] is suspected. Heart size appears mildly prominent. [facility]-[id number] Performing Organization Address City/[facility] Phone Number [facility] [address] [place] [address] * Cytology (non-gynecological) request (06/19/2018 10:17 AM CDT) [facility] DEPARTMENT OF PATHOLOGY AND GENOMIC MEDICINE Cytology See link below for PDF Lab [facility] DEPARTMENT OF (non-gynecological) Report PATHOLOGY AND report GENOMIC MEDICINE Result status This is Final Report for [facility] DEPARTMENT OF [id number] PATHOLOGY AND GENOMIC MEDICINE Performing Organization Address City/State/Zipcode Phone Number [facility] DEPARTMENT OF [address] [place] [address] PATHOLOGY AND GENOMIC MEDICINE * CT Needle Biopsy No Contrast (06/19/2018 10:13 AM CDT) Narrative Performed At EXAMINATION:CT NEEDLE BIOPSY NO CONTRAST [facility] CLINICAL HISTORY:R91.8 Other nonspecific abnormal finding of lung field, LUNG MASS COMPARISON:To a previous CT scan of the chest from 04/19/2018 FINDINGS: Following discussion with the patient concerning risks and benefits of the procedure and following IV conscious sedation with Versed and fentanyl, biopsy of a left lower lobe nodule was performed using CT fluoroscopic guidance. [id number] patient to physician sedation time was 17 minutes. Multiple core samples were obtained and sent to pathology for further evaluation. An adequacy check was performed. Small amount of hemorrhage was noted following the procedure. The patient tolerated the procedure well. IMPRESSION: Biopsy of a left lower lobe nodule. [facility]-[id number] Procedure Note Interface, Radiology Results Incoming - [...] nodule was performed using CT fluoroscopic guidance. [id number] patient to physician sedation time was 17 minutes. Multiple core samples were obtained and sent to pathology for further evaluation. An adequacy check was performed. Small amount of hemorrhage was noted following the procedure. The patient tolerated the procedure well. IMPRESSION: Biopsy of a left lower lobe nodule. [facility]-[id number] Performing Organization Address [facility] Phone Number [place] [phone] * Surgical pathology request (06/19/2018 10:13 AM CDT) Only the most recent of 3 results within the time period is included. [facility] DEPARTMENT OF PATHOLOGY AND GENOMIC MEDICINE Surgical pathology report See link below for PDF Lab [facility] DEPARTMENT OF Report PATHOLOGY AND GENOMIC MEDICINE Result status This is Supplemental Report [facility] DEPARTMENT OF for [id number] PATHOLOGY AND GENOMIC MEDICINE Performing Organization Address [facility] Cliniccoor Phone Number [address] [address] PATHOLOGY AND GENOMIC MEDICINE * ECG 12 lead (06/19/2018 8:49 AM CDT) Ventricular rate 70 [facility] MUSE Atrial rate 77 [facility] MUSE QRSD interval 90 [facility] MUSE QT interval 404 [facility] MUSE QTC interval 436 [facility] MUSE QRS axis 1 -23 [facility] MUSE T wave axis 78 [facility] MUSE EKG impression Atrial [facility] MUSE fibrillation-Anteroseptal infarct (cited on or before 28-OCT-2014)-Abnormal ECG-In automated comparison with ECG of 28-OCT-2014 16:37,-Atrial fibrillation has replaced Junctional rhythm-Vent. rate has decreased BY45 BPM-T wave inversion less evident in Lateral leads- Performing Organization Address City/[facility] Phone Number [facility] MUSE [address] [place] [address] * Partial thromboplastin time, activated (06/15/2018 11:38 AM CDT) PTT 28.5 23.0 - 36.0 sec [facility] DEPARTMENT OF Comment: PATHOLOGY AND PTT therapeutic range for [facility] MED[facility] unfractionated heparin is 61.0-112.0 seconds which corresponds to Anti-Xa 0.3-0.7 U/ml. Specimen Blood Performing Organization Address [facility] [place] [address] PATHOLOGY AND [employer] MEDICINE * Prothrombin time with INR (06/15/2018 11:38 AM CDT) Prothrombin time 16.6 (H) 12.0 - 15.0 sec [facility] DEPARTMENT OF PATHOLOGY AND GENOMIC MEDICINE INR 1.3 [facility] DEPARTMENT OF Comment: PATHOLOGY AND The International Normalized GENOMIC MEDICINE Ratio (INR) is a therapeutic monitoring tool for patients who are stable on oral anticoagulant therapy. An INR of 2.0-3.0 is suggested for deep vein thrombosis/pulmonary embolism. Specimen Blood Performing Organization Address [facility] Phone Number [facility] [place] [address] PATHOLOGY AND GENOMIC MEDICINE * CBC with platelet and differential (06/15/2018 11:38 AM CDT) WBC 12.04 (H) 4.50 - 11.00 k/uL [facility] DEPARTMENT OF PATHOLOGY AND GENOMIC MEDICINE RBC 4.89 4.20 - 5.50 m/uL [facility] DEPARTMENT OF PATHOLOGY AND GENOMIC MEDICINE HGB 14.7 12.0 - 16.0 g/dL [facility] DEPARTMENT OF PATHOLOGY AND GENOMIC MEDICINE HCT 47.6 (H) 37.0 - 47.0 % [facility] DEPARTMENT OF PATHOLOGY AND GENOMIC MEDICINE MCV 97.3 82.0 - 100.0 fL [facility] DEPARTMENT OF PATHOLOGY AND GENOMIC MEDICINE MCH 30.1 27.0 - 34.0 pg [facility] DEPARTMENT OF PATHOLOGY AND GENOMIC MEDICINE MCHC 30.9 (L) 31.0 - 37.0 g/dL [facility] DEPARTMENT OF PATHOLOGY AND GENOMIC MEDICINE RDW - SD 47.2 37.0 - 55.0 fL [facility] DEPARTMENT OF PATHOLOGY AND GENOMIC MEDICINE MPV 10.2 8.8 - 13.2 fL [facility] DEPARTMENT OF PATHOLOGY AND GENOMIC MEDICINE Platelet count 198 150 - 400 k/uL [facility] DEPARTMENT OF PATHOLOGY AND GENOMIC MEDICINE Nucleated RBC 0.00 /100 WBC [facility] DEPARTMENT OF PATHOLOGY AND GENOMIC MEDICINE Neutrophils 70.1 (H) 39.0 - 69.0 % [facility] DEPARTMENT OF PATHOLOGY AND GENOMIC MEDICINE Lymphocytes 17.1 (L) 25.0 - 45.0 % [facility] DEPARTMENT OF PATHOLOGY AND GENOMIC MEDICINE Monocytes 9.2 0.0 - 10.0 % [facility] DEPARTMENT OF PATHOLOGY AND GENOMIC MEDICINE Eosinophils 2.2 0.0 - 5.0 % [facility] DEPARTMENT OF PATHOLOGY AND GENOMIC MEDICINE Basophils 0.7 0.0 - 1.0 % [facility] DEPARTMENT OF PATHOLOGY AND GENOMIC MEDICINE Immature granulocytes 0.7Comment: "Immature 0.0 - 1.0 % [facility] DEPARTMENT OF granulocytes" (promyelocytes, PATHOLOGY AND myelocytes, metamyelocytes) [facility] Specimen Blood Performing Organization Address City/State/Zipcode Phone Number [facility] DEPARTMENT OF [address] [place] [address] PATHOLOGY AND GENOMIC MEDICINE * CT Chest Wo Contrast (04/19/2018 4:07 PM CDT) Only the most recent of 2 results within the time period is included. Narrative Performed At EXAMINATION: RADIANT CT CHEST WO CONTRAST CLINICAL HISTORY: R91.8 [...] lobe pulmonary nodules and biapical nodular thickening. [id number] Procedure Note Hm Interface, Radiology Results Incoming [...] lobe pulmonary nodules and biapical nodular thickening. [id number] Performing Organization Address City/State/Zipcode Phone Number [facility] [address] [place] [address] * Pulmonary function tests, complete (02/14/2018) Narrative Performed At after 01/09/2018 Insurance Payer Benefit Subscriber ID Type Phone Address Plan / Group HU[employer] MEDICARE HUMANA xxxxxxxxx PPO MEDICARE PPO/PFFS/E [facility] Advance Directives Patient has advance care planning documents on file. For more information, kurt white contact: Dilan Garvin [address] [place] [address]
== END 2019-01-10 19:40 | disposition short-term general hospital (02) ==
LOC: ER 18:03
DX: R06.00 Dyspnea, unspecified (principal)

== ENCOUNTER → 2019-04-15 | Outpatient (CLI) | payer MEDICARE ==
[~2019-04-15] MED LIST changes: +IOPAMIDOL 370 MG/ML 200 ML INFUS..BTL INJ ONE; +SODIUM CHLORIDE 0.9% 100 ML 100 ML ONE; +SODIUM CHLORIDE 0.9% 500ML 500 ML ONE
[2019-04-15 11:11] LABS: CREATININE, SERUM 1.1 mg/dL (0.57-1.11)
--- NOTE | 2019-04-15 15:08 | Diagnostic Imaging Report ---
EXAMINATION: CT angiography of the abdomen and pelvis and lower extremities with contrast. TECHNIQUE: Spiral CT images of the abdomen and pelvis and lower extremities were performed from the lung bases to the lesser trochanters after the intravenous administration of 100 cc Isovue-370. Coronal and sagittal reformatted images were obtained. For optimization of anatomic definition, volume rendered 3-D reconstructions were generated on a stand-alone workstation under the direct supervision of the interpreting physician. COMPARISON: None. CLINICAL HISTORY:Aortic stenosis DISCUSSION: Vasculature: The abdominal aorta is nonaneurysmal. Calcified and noncalcified atherosclerotic plaque is noted throughout the abdominal aorta. There is a short segment focus of moderate stenosis of the infrarenal abdominal aorta secondary to dense calcified plaque (series 3 image 32). Celiac axis and SMA origins are widely patent. Suspected moderate ostial stenosis of the dominant right upper pole renal artery. Left renal artery and right lower pole renal artery origins are patent. The ORALIA origin is occluded with reconstitution via SMA collaterals. Iliac arterial systems: Left: Atherosclerotic calcification of the iliac arterial system. The common and external iliac arteries are patent without significant stenosis. The internal iliac artery and central visceral branches are also patent. Right: Atherosclerotic plaque throughout. The common and external iliac arteries are patent without significant stenosis. Internal iliac artery and central visceral branches are also patent. Femoral-popliteal segments: Left: The common femoral artery is patent. The femoral bifurcation is patent. The profunda femoris artery and muscular branches are patent. The superficial femoral artery is patent though diffusely diseased. Short segment moderate stenosis is suspected at the adductor hiatus (series 3 image 143) no evaluation is slightly limited due to beam hardening artifact from calcified plaque. The above-knee and below-knee segments of the popliteal artery are patent. Right: The common femoral artery is patent. The femoral bifurcation is patent. There is complete occlusion of the superficial femoral artery from approximately 1 cm distal to the femoral bifurcation through the adductor hiatus with reconstitution via profunda femoris collaterals (series 3 image 174). The above and below-knee segments of the popliteal artery are patent. Runoff: Left: The anterior tibial artery is patent and mildly diseased, and is visualized to its continuation as the dorsalis pedis artery. The tibioperoneal trunk is patent. The peroneal artery is patent to its expected termination at the ankle joint. The posterior tibial artery is patent and is visualized to its continuation as the lateral plantar artery. Right: The anterior tibial artery is patent with calcified atherosclerotic plaque proximally and is visualized to its continuation as the dorsalis pedis artery. The tibioperoneal trunk is patent. The peroneal artery is patent to its expected termination at the ankle joint. The posterior tibial artery is patent and is visualized to its continuation as the lateral plantar artery. ABDOMEN/PELVIS: LOWER THORAX:Subsegmental atelectasis or scar in the lingula and left lower lobe, as well as the right middle lobe. HEPATOBILIARY: No focal hepatic lesions. No intra-or extrahepatic biliary ductal dilation. The gallbladder has been removed. SPLEEN: No splenomegaly. PANCREAS: No focal masses or ductal dilatation. ADRENALS: No adrenal nodules. KIDNEYS/URETERS: Nonobstructing right upper pole renal calculus with adjacent cortical scar. Nonobstructing left lower pole renal calculus. Bilateral lobulated contour may be congenital or related to prior inflammatory process. PELVIC ORGANS/BLADDER: Urinary bladder is incompletely distended but otherwise unremarkable. Uterus is anteflexed and appears normal. No adnexal mass. PERITONEUM/RETROPERITONEUM: No ascites or pneumoperitoneum. LYMPH NODES: No pelvic sidewall, retroperitoneal, or mesenteric lymphadenopathy. VESSELS: As above GI TRACT: The large bowel is notable for innumerable sigmoid diverticula without wall thickening or adjacent inflammatory change. The remainder of the large bowel is collapsed and poorly evaluated. The appendix is not definitively identified. No right lower quadrant inflammation. The stomach is collapsed with prominence of the rugal folds. No small bowel dilatation to suggest obstruction. BONES AND SOFT TISSUE: No bony destructive lesions. No soft tissue abnormalities. IMPRESSION: Diffuse calcified and noncalcified atherosclerotic disease of the abdominopelvic and lower extremity arterial systems with findings as follows: 1. Short segment moderate stenosis of the infrarenal abdominal aorta without abdominal aortic aneurysm. 2. 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 3. No significant iliac inflow stenosis. 4. 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 Short segment moderate stenosis left superficial femoral artery at the adductor hiatus. 5. Bilateral three-vessel runoff to the feet. Nonvascular findings include sigmoid diverticulosis without findings of diverticulitis, and bilateral renal calculi with suspected cortical scar. Signed by: Dr. Jovan Truong M.D. on 04/15/2019 3:05 PM
== END ==
LOC: CT 10:01
PROVIDERS: ATTEND Internal Medicine Cardiovascular Disease
DX: I70.0 Atherosclerosis of aorta (principal)
CPT/HCPCS: 36415; 75635; 82565; 84520; 96360; J7040; Q9967